=== PATIENT | female | born 1945 | race Caucasian/White ===

== ENCOUNTER 2019-11-24 04:47 | Emergency (ER) | payer MEDICARE ==
--- NOTE | 2019-11-24 05:35 | EDM.PDOC ---
ED HPI GENERAL MEDICAL PROBLEM - General Chief Complaint: ENT Problem Stated Complaint: BLOODY NOSE Time Seen by Provider: 11/24/19 05:20 Source of Information: Reports: Patient History Limitations: Reports: No Limitations - History of Present Illness INITIAL COMMENTS - FREE TEXT/NARRATIVE: 73-year-old female arrives with a right-sided epistaxis for the last hour and a half. This is her second episode in the last 24 hours, this one however they were unable to stop. She recently started using a generic Nasacort for allergies. No fevers or chills, she does have COPD. No anticoagulants. 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) - Related Data Allergies Allergy/AdvReac Type Severity Reaction Status Date / Time Penicillins Allergy Itching Verified 11/24/19 05:00 Home Meds: Home Meds Albuterol Sulfate [Proair Hfa] 2 puff IN Q4H 11/24/19 [History] Aspirin [Halfprin] 81 mg PO DAILY 11/24/19 [History] Budesonide/Formoterol [Symbicort 80-4.5 MCG] 2 puff IN BID 11/24/19 [History] Gabapentin [Neurontin] 300 mg PO ACBREAKFAST 11/24/19 [History] Gabapentin [Neurontin] 600 mg PO BEDTIME 11/24/19 [History] Ipratropium [Atrovent 0.03% Nasal May] 2 spr IN ASDIRECTED 11/24/19 [History] Sertraline HCl 100 mg PO DAILY 11/24/19 [History] Triamcinolone Acetonide [Kenalog 0.1% Crm] 1 dose TOP ASDIRECTED 11/24/19 [ History] Past Medical History HEENT History: Reports: Cataract Respiratory History: Reports: COPD 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: Musculoskeletal History: Reports: Arthritis, Back Pain, Chronic, Fracture, Neck Pain, Chronic Neurological History: Reports: Cerebral Aneurysms Psychiatric History: Reports: Anxiety, Depression Oncologic (Cancer) History: Reports: Breast Dermatologic History: Reports: Psoriasis - Infectious Disease History Infectious Disease History: Reports: Measles, Mumps - Past Surgical History HEENT Surgical History: Reports: Cataract Surgery, Tonsillectomy Female Surgical History: Reports: Breast Implant Neurological Surgical History: Reports: Intracranial Musculoskeletal Surgical History: Reports: Knee Replacement Other Musculoskeletal Surgeries/Procedures:: bunions removed Oncologic Surgical History: Reports: Mastectomy Social & Family History - Family History Family Medical History: Noncontributory - Tobacco Use Smoking Status *Q: Former Smoker Used Tobacco, but Quit: Yes Month/Year Tobacco Last Used: 20 years ago - Caffeine Use Caffeine Use: Reports: Coffee - Alcohol Use Days Per Week of Alcohol Use: 7 Number of Drinks Per Day: 1 Total Drinks Per Week: 7 - Recreational Drug Use Recreational Drug Use: No ED ROS ENT - Review of Systems Review Of Systems: See Below Constitutional: Denies: Fever, Chills HEENT: Reports: Nosebleed (Right sided) Respiratory: Reports: Shortness of Breath (Chronic, COPD with stable) GI/Abdominal: Reports: Nausea. Denies: Vomiting Neurological: Denies: Headache ED EXAM, ENT - Physical Exam Exam: See Below Exam Limited By: No Limitations General Appearance: Alert, Anxious Nose: Other (Patient has an external nasal pincer on which was applied by nursing) Mouth/Throat: Other (Still a small trickle of blood down the throat despite the external pressure) Head: Atraumatic Respiratory/Chest: No Respiratory Distress Extremities: No: Pedal Edema Neurological: Alert, Oriented Course - Vital Signs Last Recorded V/S: Last Vital Signs Temp 96.0 F L 11/24/19 05:10 Pulse 74 11/24/19 05:10 Resp 16 11/24/19 05:10 BP 176/77 H 11/24/19 05:10 Pulse Ox 94 L 11/24/19 05:10 - Orders/Labs/Meds Labs: Laboratory Tests 11/24/19 Range/Units 05:38 WBC 7.7 (4.5-11.0) K/uL RBC 4.28 (3.30-5.50) M/uL Hgb 13.0 (12.0-15.0) g/dL Hct 41.8 (36.0-48.0) % MCV 98 (80-98) fL MCH 30 (27-31) pg MCHC 31 L (32-36) % Plt Count 183 (150-400) K/uL Neut % (Auto) 71 H (36-66) % Lymph % (Auto) 14 L (24-44) % [place] % (Auto) 12 H (2-6) % Eos % (Auto) 3 (2-4) % Baso % (Auto) 0 (0-1) % - Re-Assessments/Exams Free Text/Narrative Re-Assessment/Exam: 11/24/19 05:34 Everything was blown out of the patient's nares, and a 5.5 cm rapid Rhino was placed and inflated. This did provide hemostasis. A CBC was obtained for baseline. 11/24/19 05:49 Hemoglobin is normal, patient was discharged and will have the rapid Rhino removed tomorrow morning. Departure - Departure Time of Disposition: 06:08 Disposition: Home, Self-Care 01 Clinical Impression: Right-sided epistaxis - Discharge Information Instructions: Nosebleed, [id number] Referrals: Rio Fry MD [Primary Care Provider] - Forms: ED Department Discharge Care Plan Goals: If there is a small persistent oozing, adding a small amount of air may be helpful. Return anytime if problems or concerns, otherwise recheck tomorrow morning for removal of the packing. Sepsis Event Note - Evaluation Sepsis Screening Result: No Definite Risk - Focused Exam Vital Signs: Vital Signs Temp Pulse Resp BP Pulse Ox 11/24/19 05:10 96.0 F L 74 16 176/77 H 94 L Date Exam was Performed: 11/24/19 Time Exam was Performed: 06:36
== END 2019-11-24 06:08 | disposition home or self-care (01) ==
LOC: JP.ED 04:47
DX: R04.0 Epistaxis (principal); J44.9 Chronic obstructive pulmonary disease, unspecified; F41.9 Anxiety disorder, unspecified; F32.9 Major depressive disorder, single episode, unspecified; Z79.899 Other long term (current) drug therapy; Z87.891 Personal history of nicotine dependence; Z88.0 Allergy status to penicillin; Z79.82 Long term (current) use of aspirin
CPT/HCPCS: 30901; 30903; 36415; 85025; 99282; 99283-25

== ENCOUNTER 2021-11-15 05:33 | Day surgery (SDC) | payer MEDICARE ==
[~2021-11-15 05:33] MED LIST: Acetaminophen 500 MG Tab PO ONE; Albuterol/Ipratropium 3.0-0.5 MG/3 ML Neb Soln NEB ONE; Dextrose 5%-Lactated Ringers 1,000 ML IV SCH
[2021-11-15] MEDS ORDERED: Acetaminophen 500 MG Tab PO ONE (05:45)
[2021-11-15] MEDS ORDERED: Dextrose 5%-Lactated Ringers 1,000 ML IV SCH (06:00)
[2021-11-15] MEDS ORDERED: Bupivacaine 0.5% 50 ML MDV ONE (06:41)
[2021-11-15] MEDS ORDERED: Lidocaine 1% with EPINEPHrine 1:100,000 50 ML MDV ONE (06:41)
[2021-11-15] MEDS ORDERED: Bupivacaine 0.5%/EPINEPHrine 1:200,000 50 ML MDV ONE (06:41)
[2021-11-15] MEDS ORDERED: Albuterol/Ipratropium 3.0-0.5 MG/3 ML Neb Soln NEB ONE (06:45)
[2021-11-15] MEDS ORDERED: Propofol 200 MG/20 ML SDV ONE (07:01)
[2021-11-15] MEDS ORDERED: Midazolam 1 MG/ML 2 ML SDV ONE (07:01)
[2021-11-15] MEDS ORDERED: fentaNYL 100 MCG/2 ML SDV ONE (07:01)
[2021-11-15] MEDS ORDERED: ceFAZolin 1 GM in Sodium Chloride 0.9% 100 ML IV ONE (07:15)
[2021-11-15] MEDS ORDERED: ceFAZolin 1 GM in Premix Bag 1 BAG IV ONE (07:15)
[2021-11-15] MEDS ORDERED: Ketorolac 30 MG/ML SDV ONE (07:54)
[2021-11-15] MEDS ORDERED: HYDROmorphone 2 MG Tab PO PRN (10:00)
== END 2021-11-15 11:20 | disposition home or self-care (01) ==
LOC: JP.SDS 05:33
PROVIDERS: ATTEND Surgery
DX: K40.30 Unilateral inguinal hernia, with obstruction, without gangrene, not specified as recurrent (principal); J44.9 Chronic obstructive pulmonary disease, unspecified; Z88.0 Allergy status to penicillin; Z88.8 Allergy status to other drugs, medicaments and biological substances
CPT/HCPCS: 49507; A9270; C1713; C1781; J0690; J1642; J1885; J2250; J2704; J3010; J3490; J7121; J7620

== ENCOUNTER 2021-12-26 12:30 | Inpatient (IN) | payer MEDICARE ==
[2021-12-26] MEDS ORDERED: Ondansetron 4 MG/2 ML SDV IV PRN (13:13)
[2021-12-26] MEDS ORDERED: Ondansetron 4 MG Tab.DIS PO PRN (13:13)
[2021-12-26] MEDS ORDERED: Albuterol 0.083% 2.5 MG/3 ML Neb Soln NEB PRN (13:13)
[2021-12-26] MEDS ORDERED: Acetaminophen 325 MG Tab PO PRN (13:13)
[2021-12-26] MEDS ORDERED: LORazepam 2 MG/ML SDV IVPUSH PRN (13:13)
[2021-12-26] MEDS ORDERED: Magnesium Hydroxide 400 MG/5 ML Susp 30 ML Cup PO PRN (13:13)
[2021-12-26] MEDS ORDERED: Sodium Chloride 0.9% 10 ML Syringe FLUSH PRN (13:13)
[2021-12-26] MEDS ORDERED: Acetaminophen/HYDROcodone 325-5 MG Tab PO PRN (13:13)
[2021-12-26] MEDS ORDERED: Melatonin 3 MG Tab PO PRN (13:13)
[2021-12-26] MEDS ORDERED: Albuterol 8 GM Inhaler INH PRN (13:22)
[2021-12-26] MEDS ORDERED: Warfarin 5 MG Tab PO ONE (14:00)
[2021-12-26] MEDS: Enoxaparin 80 MG/0.8 ML Syringe SUBCUT SCH (14:24)
[2021-12-26] MEDS: Albuterol/Ipratropium 3.0-0.5 MG/3 ML Neb Soln INH SCH ×2 (14:33→20:32)
[2021-12-26 16:03] LABS: CORONAVIRUS COVID-19 NAA NEGATIVE (NEGATIVE)
[2021-12-26] MEDS: Gabapentin 300 MG Cap PO SCH (21:33)
[2021-12-27] MEDS: Albuterol/Ipratropium 3.0-0.5 MG/3 ML Neb Soln INH SCH ×4 (06:58→20:18)
[2021-12-27] MEDS: Gabapentin 300 MG Cap PO SCH ×2 (07:08→20:18)
[2021-12-27] MEDS: Sertraline 50 MG Tab PO SCH (08:29)
[2021-12-27] MEDS: Folic Acid 1 MG Tab PO SCH (08:29)
[2021-12-27] MEDS ORDERED: Warfarin 5 MG Tab PO SCH (13:00)
[2021-12-27] MEDS: Enoxaparin 80 MG/0.8 ML Syringe SUBCUT SCH (13:03)
[2021-12-28] MEDS: Albuterol/Ipratropium 3.0-0.5 MG/3 ML Neb Soln INH SCH ×2 (07:18→11:10)
[2021-12-28] MEDS: Sertraline 50 MG Tab PO SCH (08:09)
[2021-12-28] MEDS: Gabapentin 300 MG Cap PO SCH (08:09)
[2021-12-28] MEDS: Folic Acid 1 MG Tab PO SCH (08:09)
[2021-12-28] MEDS: Enoxaparin 80 MG/0.8 ML Syringe SUBCUT SCH (12:22)
[2021-12-28] MEDS ORDERED: Warfarin 5 MG Tab PO SCH (13:00)
[2021-12-28] MEDS ORDERED: Warfarin 5 MG, Warfarin 2.5 MG PO SCH ×2 (13:00)
== END 2021-12-28 13:05 | disposition home or self-care (01) | DRG 175 ==
LOC: JP.MS 12:30 → OBSVTOIN 13:13
PROVIDERS: ADMIT Internal Medicine; ATTEND Internal Medicine
DX: I26.99 Other pulmonary embolism without acute cor pulmonale (principal); J96.01 Acute respiratory failure with hypoxia; C34.91 Malignant neoplasm of unspecified part of right bronchus or lung; Z20.822 Contact with and (suspected) exposure to COVID-19; J44.9 Chronic obstructive pulmonary disease, unspecified; M19.90 Unspecified osteoarthritis, unspecified site; G89.29 Other chronic pain; M54.9 Dorsalgia, unspecified; F41.9 Anxiety disorder, unspecified; Z96.659 Presence of unspecified artificial knee joint; F32.A Depression, unspecified; Z98.49 Cataract extraction status, unspecified eye; Z87.891 Personal history of nicotine dependence; Z90.10 Acquired absence of unspecified breast and nipple
CPT/HCPCS: 0241U; 36415; 80048; 85027; 85610; 94640; A9270-GY; J1642; J1650; J7620

== ENCOUNTER 2021-12-31 16:32 | Emergency (ER) | payer MEDICARE ==
[2021-12-31] MEDS ORDERED: Albuterol/Ipratropium 3.0-0.5 MG/3 ML Neb Soln NEB ONE (17:49)
== END 2021-12-31 18:52 | disposition home or self-care (01) ==
LOC: JP.ED 16:32
DX: C34.92 Malignant neoplasm of unspecified part of left bronchus or lung (principal); J44.9 Chronic obstructive pulmonary disease, unspecified; I26.99 Other pulmonary embolism without acute cor pulmonale; Z88.0 Allergy status to penicillin; Z88.8 Allergy status to other drugs, medicaments and biological substances; Z87.891 Personal history of nicotine dependence
CPT/HCPCS: 36415; 71046; 80053; 85025; 85610; 99283; 99285-25; J7620

== ENCOUNTER 2022-02-16 09:46 | Emergency (ER) | payer MEDICARE ==
[2022-02-16] MEDS ORDERED: fentaNYL 100 MCG/2 ML SDV IM ONE (11:16)
== END 2022-02-16 12:30 | disposition home or self-care (01) ==
LOC: JP.ED 09:46
DX: S80.01XA Contusion of right knee, initial encounter (principal); J44.9 Chronic obstructive pulmonary disease, unspecified; Z88.0 Allergy status to penicillin; Z88.6 Allergy status to analgesic agent; Z86.711 Personal history of pulmonary embolism; Z79.01 Long term (current) use of anticoagulants; Z79.899 Other long term (current) drug therapy; Z87.891 Personal history of nicotine dependence; W19.XXXA Unspecified fall, initial encounter
CPT/HCPCS: 73552-26-LT; 73552-RT; 73562-26-RT; 73562-RT; 96372; 99283; J3010

== ENCOUNTER 2022-03-31 19:52 | Emergency (ER) | payer MEDICARE ==
[2022-03-31] MEDS ORDERED: Sodium Chloride 0.9% 10 ML Syringe FLUSH PRN (19:53)
[2022-03-31 20:40] LABS: ESTIMATED GFR 88 mL/min (>60); TROPONIN I HIGH SENSITIVITY 34.8 pg/mL (<=60.3)
[2022-03-31] MEDS ORDERED: Cephalexin 250 MG Cap PO ONE (21:58)
== END 2022-03-31 22:32 | disposition home or self-care (01) ==
LOC: JP.ED 19:52
DX: C34.91 Malignant neoplasm of unspecified part of right bronchus or lung (principal); R41.0 Disorientation, unspecified; N39.0 Urinary tract infection, site not specified; I26.99 Other pulmonary embolism without acute cor pulmonale; F10.920 Alcohol use, unspecified with intoxication, uncomplicated; J44.9 Chronic obstructive pulmonary disease, unspecified; Z79.01 Long term (current) use of anticoagulants; Y90.6 Blood alcohol level of 120-199 mg/100 ml
CPT/HCPCS: 36415; 70450; 71046; 80053; 80307; 81001; 83605; 84484; 85025; 86140; 87040; 87086; 93005; 99285; J3490; 93010

== ENCOUNTER 2022-04-11 08:35 | Emergency (ER) | payer MEDICARE | END 2022-04-11 11:48 | disposition other institution (70) | LOC: JP.ED 08:35 | DX: J40 Bronchitis, not specified as acute or chronic (principal); F10.10 Alcohol abuse, uncomplicated; Z88.0 Allergy status to penicillin; Z88.6 Allergy status to analgesic agent; Z79.899 Other long term (current) drug therapy; Z20.822 Contact with and (suspected) exposure to COVID-19 | CPT/HCPCS: 36415; 71046; 80305; 80307; 85610; 99285; U0002 ==